=== PATIENT | female | born 1990 | race Caucasian/White ===

== ENCOUNTER 2020-03-10 15:49 | Emergency (ER) | payer OTHER, SELFPAY ==
[2020-03-10 16:00] VITALS: BP 137/97; PULSE 112; RESP 16; O2SAT 98; BMI 20.1
[2020-03-10 16:05] VITALS: TEMP 36.6
--- NOTE | 2020-03-10 16:06 | PC.NURSE ---
Pt to waiting room with clean catch kit and instructions.
[2020-03-10 17:16] LABS: Basophils # 0.1 10^3/uL (0.0-0.1); Basophils % 0.6 %; Eosinophils # 0.1 10^3/uL (0.0-0.8); Eosinophils % 1.4 %; Hematocrit 40.5 % (37.0-47.0); Hemoglobin 13.2 g/dL (11.5-15.3); Lymphocytes # 1.6 10^3/uL (0.8-4.8); Lymphocytes % 19.9 %; Mean Corpuscular HGB Conc 32.6 g/dL (30.0-36.0); Mean Corpuscular Hemoglobin 31.7 pg (28.0-34.0); Mean Corpuscular Volume 97.1 fL (81-99); Mean Platelet Volume 9.5 fL (7.4-10.4); Monocytes # 0.4 10^3/uL (0.2-0.9); Monocytes % 4.7 %; Neutrophils # 5.9 10^3/uL (1.8-7.7); Neutrophils % 73.2 %; Nucleated Red Blood Cells % 0 %; Platelet Count 309 10^3/cmm (130-400); Red Blood Count 4.17 10^6/uL (4.1-5.3)
[2020-03-10 17:28] LABS: Add Urine Microscopic? NO
[2020-03-10 17:32] LABS: Alanine Aminotransferase 25 U/L (0-33); Albumin Level 4.9 g/dL (3.5-5.2); Alkaline Phosphatase 39 IU/L (35-105); Anion Gap 13.2 (5-19); Aspartate Amino Transferase 31 U/L (0-32); Blood Urea Nitrogen 14 mg/dL (6-20); Calcium 9.7 mg/dL (8.5-10.5); Carbon Dioxide 29 mmol/L (22-29); Chloride 103 mmol/L (98-107); Globulin 3.4 g/dL (1.3-4.6); Glomerular Filtration Rate 84.2 mL/min (90-130); Glucose 134 mg/dL (65-115); Osmolality Calculated 290 mOsm/kg (285-295); Potassium 4.2 mmol/L (3.5-5.1); Sodium 141 mmol/L (136-145); Total Bilirubin 0.4 mg/dL (0.15-1.2); Total Protein 8.3 g/dL (6.6-8.7)
[2020-03-10 17:38] LABS: Bilirubin Urine Neg (NEGATIVE); Blood Urine Neg (Negative); Glucose Urine UA Norm (Normal); Ketones Urine Negative (Negative); Leukocyte Esterase Urine Negative (Negative); Nitrate Urine Negative (Negative); Protein Urine Neg (Negative); Urine Appearance Clear (CLEAR); Urine Color Yellow (Yellow); Urobilinogen Urine Norm (Negative); pH Urine 5 (5-7)
[2020-03-10 17:41] LABS: Amphetamines Screen Urine Negative (Negative); Barbiturates Screen Urine Negative (Negative); Benzodiazepines Screen Urine Negative (Negative); Cocaine Screen Urine Negative (Negative); Opiate Screen Urine Negative (Negative); PCP Screen Urine Negative (Negative); THC Screen Urine Negative (Negative)
--- NOTE | 2020-03-10 18:44 | PC.NURSE ---
Pt noted to be ambulating in the lobby and outside without difficulty.
--- NOTE | 2020-03-10 18:50 | ECG_ITS ---
Measurements Intervals [place] Rate: 75 P: 75 AL: 116 QRS: 62 QRSD: 81 T: -8 QT: 343 QTc: 383 SINUS RHYTHM WITH SINUS ARRHYTHMIA WITH SHORT AL INTERVAL POSSIBLE RIGHT ATRIAL ENLARGEMENT [0.25mV P WAVE] LEFT ATRIAL ENLARGEMENT [-0.15mV P WAVE IN V1/V2] POSSIBLE RIGHT VENTRICULAR CONDUCTION DELAY [RSR (QR) IN V1/V2] NONSPECIFIC ST & T-WAVE ABNORMALITY No previous ECG available for comparison Electronically Signed On 03-11-2020 20:12:48 CDT by Leonard Aleman M.D. [email or web address]
--- NOTE | 2020-03-10 19:36 | CTR_ITS ---
PROCEDURE INFORMATION: Exam: CT Head Without Contrast Exam date and time: 03/10/2020 7:52 PM Age: 29 years old Clinical indication: Numbness / parasthesia; Left; Patient HX: C/O intermittent L sided numbness x 1 mo; Additional info: Left sided numbness TECHNIQUE: Imaging protocol: Computed tomography of the head without contrast. Radiation optimization: All CT scans at this facility use at least one of these dose optimization techniques: automated exposure control; mA and/or kV adjustment per patient size (includes targeted exams where dose is matched to clinical indication); or iterative reconstruction. COMPARISON: No relevant prior studies available. RADIATION DOSE METRICS: Total DLP: 916.14 mGy-cm FINDINGS: Brain: Normal. No hemorrhage. Unremarkable white matter. No mass effect. Ventricles: Normal. No ventriculomegaly. Bones/joints: Unremarkable. No acute fracture. Sinuses: Visualized sinuses are unremarkable. No fluid levels. Mastoid air cells: Visualized mastoid air cells are well aerated. Soft tissues: Unremarkable. CT/CT head wo con* 15101 IMPRESSION: No acute intracranial abnormality. Radiation Dose CTDIVOL = (mGy): DLP = 916.14 (mGy-cm)
[2020-03-10 20:09] VITALS: BP 129/81; PULSE 88; RESP 14; O2SAT 100
--- NOTE | 2020-03-10 20:33 | ED_ITS ---
HPI - Neuro Symptoms/Deficit General: Chief Complaint: Neuro Symptoms/Deficit Stated Complaint: stroke s/s Time Seen by Provider: 03/10/20 19:31 History of Present Illness: HPI Narrative: Patient states that for the last month or so she has had what feels like some numbness on the left side of her body from the head on down to the foot and some in the right shoulder not been able get an PCP due to the virus going on. Patient said her foot felt little bit funny today and is why decided come in her 's EMT did a stroke assessment back on her months that everything was fine Onset (ago): month(s) Location: left face, left arm and left leg Severity: mild Associated symptoms: Reports no associated symptoms; Deny chest pain, headache(s), nausea or vomiting Review of Systems Narrative: Complains of mild numbness from the left top of her head down to the left foot has not affected her gait or speech or anything else and started a month ago and they she said that it fell a bit more in her left foot days so decided come to ER and get checked out Const: Denies: fever, chills or body aches Eyes: Denies: change in vision or blurry vision ENMT: Denies: throat pain or nasal congestion Card: Denies: chest pain or shortness of breath on exertion Resp: Denies: shortness of breath, productive cough or non-productive cough GI: Denies: abdominal pain, nausea or vomiting Musc: Denies: extremity pain Skin/Breast: Denies: rash Neuro: Denies: headache Psych: Denies: anxiety or depression Misbah/Lymph: Denies: easy bruising PFS ED PFSH: Social History Smoking and tobacco status: never smoked Female Reproductive History: Date of last menstrual period: 03/09/20 Physical Exam Const: COMMON NORMALS: no apparent distress, average body habitus and oriented x3 HENMT: COMMON NORMALS: normocephalic HEAD & SCALP: normal to inspection and normocephalic FACE & SINUS: normal facial exam Eye: COMMON NORMALS: conjunctivae normal GENERAL EYE: normal appearance of both eyes CONJUNCTIVA: Yes conjunctivae normal Neck/C-Spine: COMMON NORMALS: no JVD Chest: COMMONS NORMALS: inspection of chest normal Resp: COMMON NORMALS: normal respiratory effort and clear to auscultation bilaterally AUSCULTATION: clear to auscultation bilaterally Cardio: COMMON NORMALS: no JVD, regular rate and regular rhythm RATE: regular rate RHYTHM: regular rhythm GI: COMMON NORMALS: normal to inspection, nondistended, normoactive bowel sounds Extremity: COMMON NORMALS: normal to inspection and full ROM Neuro: COMMON NORMALS: oriented x3, CN's II-XII intact bilaterally, moves all extremities, no sensory deficits noted, deep tendon reflexes 2+ bilaterally and gait normal Course Vital Signs: Vital signs: Vital Signs Temperature 97.8 F 03/10/20 16:05 Pulse Rate 88 03/10/20 20:09 Respiratory Rate 14 03/10/20 20:09 Blood Pressure 129/81 03/10/20 20:09 Pulse Oximetry 100 03/10/20 20:09 MDM - Neuro Symptoms/Deficit Lab Data: Labs: Lab Results 03/10/20 03/10/20 03/10/20 Range/Units 17:10 17:10 17:18 WBC 8.0 (4.0-10.0) 10^3/ uL RBC 4.17 (4.1-5.3) 10^6/u L Hgb 13.2 (11.5-15.3) g/dL Hct 40.5 (37.0-47.0) % MCV 97.1 (81-99) fL MCH 31.7 (28.0-34.0) pg MCHC 32.6 (30.0-36.0) g/dL RDW 12.0 L (12.1-15.1) % Plt Count 309 (130-400) 10^3/c mm MPV 9.5 (7.4-10.4) fL Neut % (Auto) 73.2 % Lymph % (Auto) 19.9 % [place] % (Auto) 4.7 % Eos % (Auto) 1.4 % Baso % (Auto) 0.6 % Neut # (Auto) 5.9 (1.8-7.7) 10^3/u L Lymph # (Auto) 1.6 (0.8-4.8) 10^3/u L [place] # (Auto) 0.4 (0.2-0.9) 10^3/u L Eos # (Auto) 0.1 (0.0-0.8) 10^3/u L Baso # (Auto) 0.1 (0.0-0.1) 10^3/u L Nucleated RBC % (a uto) 0 % Nucleated RBCs # 0.0 /100WBC Sodium 141 (136-145) mmol/L Potassium 4.2 (3.5-5.1) mmol/L Chloride 103 (98-107) mmol/L Carbon Dioxide 29 (22-29) mmol/L Anion Gap 13.2 (5-19) BUN 14 (6-20) mg/dL Creatinine 0.8 (0.5-0.9) mg/dL GFR Calculation 84.2 L (90-130) mL/min Glucose 134 H (65-115) mg/dL Calculated Osmolal ity 290 (285-295) mOsm/k g Calcium 9.7 (8.5-10.5) mg/dL Total Bilirubin 0.4 (0.15-1.2) mg/dL AST 31 (0-32) U/L ALT 25 (0-33) U/L Alkaline Phosphata se 39 (35-105) IU/L Total Protein 8.3 (6.6-8.7) g/dL Albumin 4.9 (3.5-5.2) g/dL Globulin 3.4 (1.3-4.6) g/dL Urine Color Yellow (Yellow) Urine Appearance Clear (CLEAR) Urine pH 5 (5-7) Ur Specific Gravit y 1.010 (1.005-1.030) Urine Protein Neg (Negative) Urine Glucose (UA) Norm (Normal) Urine Ketones Negative (Negative) Urine Blood Neg (Negative) Urine Nitrate Negative (Negative) Urine Bilirubin Neg (NEGATIVE) Urine Urobilinogen Norm (Negative) mg/dL Ur Leukocyte Flower ase Negative (Negative) Urine Opiates Scre en (Negative) ng/mL Ur Barbiturates Sc reen (Negative) ng/mL Ur Phencyclidine S crn (Negative) ng/mL Ur Amphetamines Sc reen (Negative) ng/mL U Benzodiazepines Scrn (Negative) ng/mL Urine Cocaine Scre en (Negative) ng/mL U Marijuana (THC) Screen (Negative) ng/mL 03/10/20 Range/Units 17:18 WBC (4.0-10.0) 10^3/ uL RBC (4.1-5.3) 10^6/u L Hgb (11.5-15.3) g/dL Hct (37.0-47.0) % MCV (81-99) fL MCH (28.0-34.0) pg MCHC (30.0-36.0) g/dL RDW (12.1-15.1) % Plt Count (130-400) 10^3/c mm MPV (7.4-10.4) fL Neut % (Auto) % Lymph % (Auto) % [place] % (Auto) % Eos % (Auto) % Baso % (Auto) % Neut # (Auto) (1.8-7.7) 10^3/u L Lymph # (Auto) (0.8-4.8) 10^3/u L [place] # (Auto) (0.2-0.9) 10^3/u L Eos # (Auto) (0.0-0.8) 10^3/u L Baso # (Auto) (0.0-0.1) 10^3/u L Nucleated RBC % (a uto) % Nucleated RBCs # /100WBC Sodium (136-145) mmol/L Potassium (3.5-5.1) mmol/L Chloride (98-107) mmol/L Carbon Dioxide (22-29) mmol/L Anion Gap (5-19) BUN (6-20) mg/dL Creatinine (0.5-0.9) mg/dL GFR Calculation (90-130) mL/min Glucose (65-115) mg/dL Calculated Osmolal ity (285-295) mOsm/k g Calcium (8.5-10.5) mg/dL Total Bilirubin (0.15-1.2) mg/dL AST (0-32) U/L ALT (0-33) U/L Alkaline Phosphata se (35-105) IU/L Total Protein (6.6-8.7) g/dL Albumin (3.5-5.2) g/dL Globulin (1.3-4.6) g/dL Urine Color (Yellow) Urine Appearance (CLEAR) Urine pH (5-7) Ur Specific Gravit y (1.005-1.030) Urine Protein (Negative) Urine Glucose (UA) (Normal) Urine Ketones (Negative) Urine Blood (Negative) Urine Nitrate (Negative) Urine Bilirubin (NEGATIVE) Urine Urobilinogen (Negative) mg/dL Ur Leukocyte Flower ase (Negative) Urine Opiates Scre en Negative (Negative) ng/mL Ur Barbiturates Sc reen Negative (Negative) ng/mL Ur Phencyclidine S crn Negative (Negative) ng/mL Ur Amphetamines Sc reen Negative (Negative) ng/mL U Benzodiazepines Scrn Negative (Negative) ng/mL Urine Cocaine Scre en Negative (Negative) ng/mL U Marijuana (THC) Screen Negative (Negative) ng/mL Discharge Plan Discharge Patient Disposition: Home, Self-Care Clinical Impression: Numbness Condition: Stable Discharge Orders: Discharge Order (Routine); Ordered 03/10/20 Ordered By: Eren Tomas Discharge Diet: Usual diet Discharge Activity: Resume usual activity Activity Restrictions/Additional Instructions: Follow-up primary care doctor this week to discuss symptoms Coding Level of Care Code ED Iron Plastic Bullet Maker for Pia Michelle
--- NOTE | 2020-03-10 21:02 | ECG_ITS ---
Measurements Intervals [place] Rate: 84 P: 78 [place]: 127 QRS: 66 QRSD: 82 T: 40 QT: 327 QTc: 387 SINUS RHYTHM POSSIBLE RIGHT ATRIAL ENLARGEMENT [0.25mV P WAVE] LEFT ATRIAL ENLARGEMENT [-0.15mV P WAVE IN V1/V2] POSSIBLE RIGHT VENTRICULAR CONDUCTION DELAY [RSR (QR) IN V1/V2] MODERATE ST DEPRESSION [0.05+ mV ST DEPRESSION] No previous ECG available for comparison Electronically Signed On 03-11-2020 19:57:10 CDT by Leonard Aleman M.D. [email or web address]
== END 2020-03-10 20:54 | disposition home or self-care (01) ==
PROVIDERS: Family Medicine; Emergency Provider Nurse Practitioner Family
DX: R20.0 Anesthesia of skin (principal)
CPT/HCPCS: 12345; 36415; 70450; 80053; 80306; 81003; 85025; 93005; 99283

== ENCOUNTER 2021-07-09 21:34 | Inpatient (IN) | payer OTHER, SELFPAY ==
[2021-07-09] VITALS (13 sets, daily range): BP systolic 115–138; BP diastolic 63–78; PULSE 75–93; TEMP 37.2; BMI 24.5
[2021-07-09] MEDS: lactated ringers 1,000 ML 999 ML IV (16:37)
--- NOTE | 2021-07-09 17:28 | P.HP_ITS ---
Providers/Chief Complaint Chief Complaint: Abdominal pain History of Present Illness Carmen Harris is a 31 year old female at 39 3/7 weeks who presents for labor. She had intended to have a home delivery with a market development executive. She achieved 4 cm dilation for 8 hours and the market development executive was worried and sent her here to deliver. When she arrived, she was 8 cm and in active labor. Her is uncomplicated. She had good care with the market development executive. GBS- negative blood type A+ Hep B negative rubella- immune GCT- passed Review of Systems General: Reports: 10 or more systems reviewed and unremarkable except in HPI and below Medications/Allergies Allergies Allergy/AdvReac Type Severity Reaction Status Date / Time coconut Allergy ADR-Vomitin Verified 03/10/20 16:04 g glycerin Allergy ADR-Vomitin Verified 03/10/20 16:04 g loratadine [From Claritin] Allergy ADR/ALGY-Pa Verified 03/10/20 16:04 lpitations PFSH Acute PFSH: Social History Smoking and tobacco status: never smoked Female Reproductive History: Date of last menstrual period: 03/09/20 Vitals/I&O/Wt Last Vital Signs Pulse 81 07/09/21 17:19 BP 130/63 07/09/21 17:19 Physical Exam : MANUAL OB EXAM: dilated 8 cm, effaced fully and station 0 AMNIOTIC FLUID: no fluid A&P Assessment and plan (1) Active labor at term: anticipate normal spontaneous delivery Status: Acute Attestations Medical Necessity Statement*: The patient is in active labor. She may be here for 2 midnights. Coding Level of Care Code Acute Geodetic Surveyor for Pia Michelle Diagnoses Active labor at term
[2021-07-09 17:57] LABS: Basophils # 0.1 10^3/uL (0.0-0.1); Basophils % 0.3 %; Eosinophils # 13.3 10^3/uL (0.0-0.8); Hemoglobin 13.6 g/dL (11.5-15.3); Lymphocytes # 0.7 10^3/uL (0.8-4.8); Lymphocytes % 3.5 %; Mean Corpuscular Hemoglobin 32.9 pg (28.0-34.0); Mean Corpuscular Volume 96.9 fl (81-99); Mean Platelet Volume 11.1 fL (7.4-10.4); Monocytes # 0.6 10^3/uL (0.2-0.9); Neutrophils # 4.25 10^3/uL (1.8-7.7); Neutrophils % 21.2 %; Nucleated Red Blood Cells % 0 %; Platelet Count 260 10^3/cmm (130-400); Red Blood Count 4.13 10^6/uL (4.1-5.3); Red Cell Distribution Width 13.9 % (12.1-15.1); White Blood Count 20.1 10^3/uL (4.0-10.0)
[2021-07-09 18:58] LABS: Slide Review Slide Review Perform
[2021-07-09] MEDS: dextrose 5%-lactated ringers 1,000 ML 125 ML IV (21:45)
[2021-07-10] VITALS (31 sets, daily range): BP systolic 90–130; BP diastolic 50–74; PULSE 61–88; RESP 17–20; TEMP 36.3–36.9
[2021-07-10] MEDS: oxytocin 30 UNIT/500 ML BAG 600 UNIT IV (00:10)
[2021-07-10] MEDS: lidocaine 2% INJ 20 mL INJECTION (00:17)
[2021-07-10] MEDS: fentaNYL 50 mcg/mL INJ 2mL 25 MCG IVP (00:28)
--- NOTE | 2021-07-10 00:30 | PM.DELIVERY ---
Delivery Note: Date of delivery: July 10, 2021 Pre-delivery diagnoses: active labor at 39 3/7 weeks Post-delivery diagnoses: same Procedure: Op report anesthesia: None Delivering Physician: celso Estimated blood loss (mL): 75 Findings: Term female in the cephalic presentation Pre-Delivery Course: The patient intended to deliver at home with a information technology manager. The information technology manager became concerned that the patient did not make any cervical change in 8 hours. She was dilated to 4 cm. She was brought here. She progress to 8 cm and stalled. She was palpated to be OP. She was repositioned several times. She eventually had complete cervical dilation and the baby was OA. She had AROM at complete cervical dilation. She began to push. Delivery: The patient had complete cervical dilation and began to push. The head delivered in the MUMTAZ position over an intact perineum under no anesthesia. The nose and mouth were bulb suctioned. The shoulders and body delivered atraumatically. The baby was placed onto the mother's abdomen. The cord was clamped and cut. Cord blood was obtained. The placenta delivered spontaneously. It was inspected and found to be intact. Inspection of the perineum revealed bilateral vaginal lacerations. These were repaired in a running locked stitch.. Estimated blood loss 75 mL. Apgars on baby were 9 at 1 minute and 9 at 5 minutes. Weight of baby is 8 pounds 8 ounces. Mother and baby were stable post delivery. A&P Assessment and plan (1) Active labor at term: Status: Acute Coding Level of Care Code Acute Mica Miner Blasting for Chg Fwd Diagnoses Active labor at term
[2021-07-10] MEDS: HYDROcodone-acetaminophen 5-325 mg Tablet PO (02:51)
[2021-07-10] MEDS: ibuprofen 800 mg tablet PO ×3 (08:20→21:22)
[2021-07-10] MEDS: docusate sodium 100 mg Capsule PO ×2 (08:20→17:06)
[2021-07-10 13:08] LABS: Hematocrit 36.6 % (37.0-47.0); Mean Corpuscular HGB Conc 32.8 g/dL (30.0-36.0); Mean Corpuscular Hemoglobin 33.2 pg (28.0-34.0); Mean Corpuscular Volume 101.4 fl (81-99); Mean Platelet Volume 10.7 fL (7.4-10.4); Platelet Count 185 10^3/cmm (130-400); Red Blood Count 3.61 10^6/uL (4.1-5.3); Red Cell Distribution Width 14.3 % (12.1-15.1); White Blood Count 18.7 10^3/uL (4.0-10.0)
[2021-07-11] VITALS (9 sets, daily range): BP systolic 100–117; BP diastolic 57–63; PULSE 68–146; RESP 16; TEMP 36.3–36.6; O2SAT 99
[2021-07-11] MEDS: docusate sodium 100 mg Capsule PO (09:19)
[2021-07-11] MEDS: ibuprofen 800 mg tablet PO (09:20)
--- NOTE | 2021-07-11 10:07 | PM.DCS ---
Discharge Providers Date of Admission: 07/09/21 21:34 Date of Discharge: July 11, 2021 Attending Provider at Admission: Farhana Live MD Attending Provider at Discharge: Gavin Joyner MD Diagnoses at Discharge Discharge Diagnosis (1) Active labor at term: Status: Resolved Reason for Visit Reason for Visit: Abdominal pain Hospital Course Hospital Course The patient was admitted in active labor. She had intended to deliver at home with a tinner automatic. The tinner automatic felt that the labor had stalled and she brought her here. She eventually had a spontaneous delivery of a term . She did well and was ready for discharge on day #1 Physical Exam Narrative: EXAM NARRATIVE: The patient is doing well this morning. No concerns. She has minimal lochia. Pain is well controlled. Tolerating a regular diet and ambulating without difficulty. Const: COMMON NORMALS: no acute distress, average body habitus, patient oriented x3, no limitations, healthy appearing, alert and well nourished GENERAL APPEARANCE: cooperative, comfortable, well kempt and well developed ORIENTATION/CONSCIOUSNESS: Yes awake, Yes oriented to person, Yes oriented to place and Yes oriented to time Resp: COMMON NORMALS: normal respiratory effort EFFORT & INSPECTION: Yes able to speak in complete sentences GI: COMMON NORMALS: Soft to palpation and non-tender PALPATION: Yes Soft to palpation Extremity: COMMON NORMALS: no clubbing, cyanosis or edema and no calf tenderness Neuro: COMMON NORMALS: patient oriented x3 SENSORIUM/ORIENTATION: Yes alert, Yes oriented to person, Yes oriented to place and Yes oriented to time Psych: APPEARANCE: Yes well kempt Discharge Data Data Completed and Pending: Labs from last 24 hours 07/10/21 12:18 WBC 18.7 H RBC 3.61 L Hgb 12.0 Hct 36.6 L MCV 101.4 H MCH 33.2 MCHC 32.8 RDW 14.3 Plt Count 185 MPV 10.7 H Vitals: Last Vital Signs Temp 97.5 F L 07/11/21 09:27 Pulse 113 H 07/11/21 09:28 Resp 16 07/11/21 04:32 BP 101/57 07/11/21 09:27 Pulse Ox 99 07/11/21 09:28 Discharge Plan Discharge Patient Disposition: Home Condition: Stable Prescriptions: Continued [id number]-Sz-FA 1 mg Tablet 1 tab PO DAILY RF: 0 Hemaplex 1 tab PO DAILY RF: 0 Discharge Orders: Discharge Order (Routine); Ordered 07/11/21 Ordered By: Farhana Live Patient Instructions: Vitamins (By mouth), Depression (GEN), Pre-eclampsia and Eclampsia (DC), Bleeding (DC), OB Discharge Report, OB Food/Drug Interaction Guide, Opioid Safety, OB Home Care, OB Proud Parent Packet, OB Vaginal Deliveries - C Discharge Attestations Time Spent in Discharge Care*: less than 30 min Quality Metrics Clinical Quality Measures During this hospital stay, did patient experience: None Coding Level of Care Code Acute Chg FW DC note Diagnoses Active labor at term
== END 2021-07-11 13:36 | disposition home or self-care (01) | DRG 807 ==
LOC: OPOB 21:35 → OBGYN 07-10 02:07
PROVIDERS: Admitting Provider Obstetrics & Gynecology; Visit Provider Obstetrics & Gynecology
DX: O70.0 First degree perineal laceration during delivery (principal); Z37.0 Single live birth; Z3A.39 39 weeks gestation of pregnancy
CPT/HCPCS: 36415; 59025; 59409; 85025; 85027; 96374; 98960; 99211; J3010

== ENCOUNTER 2024-05-24 14:07 | Emergency (ER) | payer OTHER, SELFPAY ==
[2024-05-24 14:08] VITALS: BP 118/77; PULSE 89; TEMP 36.9; O2SAT 100; BMI 22.6
--- NOTE | 2024-05-24 14:13 | ED_ITS ---
HPI - Allergic Reaction General: Chief complaint: Allergic Reaction Stated complaint: ALLERGIC REACTION Time Seen by Provider: 05/24/24 14:09 History of Present Illness: HPI narrative: 34-year-old woman with a history of anap hylaxis to bee stings who presents emergency room by ambulance after being stung by bee today. Her had IM Benadryl and gave her 50 mg. EMS gave her 25 more milligrams of Benadryl, 125 mg Solu-Medrol and some IV Zofran and upon arrival here she is improved. She also received a small amount of fluids. She said if she felt like her tongue was going numb and may be swelling. She felt a little bit short of breath. She now feels normal Review of Systems Narrative: Constitutional symptoms: Negative except as documented in HPI. Skin symptoms: Negative except as documented in HPI. Eye symptoms: Negative except as documented in HPI. ENMT symptoms: Negative except as documented in HPI. Respiratory symptoms: Negative except as documented in HPI. Cardiovascular symptoms: Negative except as documented in HPI. Gastrointestinal symptoms: Negative except as documented in HPI. Genitourinary symptoms: Negative except as documented in HPI. Musculoskeletal symptoms: Negative except as documented in HPI. Neurologic symptoms: Negative except as documented in HPI. Psychiatric symptoms: Negative except as documented in HPI. Endocrine symptoms: Negative except as documented in HPI. PFSH ED PFSH: Social History Smoking and tobacco/nicotine status: never used tobacco/nicotine Physical Exam Narrative: EXAM NARRATIVE: General: Alert, no acute distress. Skin: Warm, dry. Head: Normocephalic, atraumatic. Neck: Supple, trachea midline. Eye: Extraocular movements are intact. Ears, nose, mouth and throat: mucosa moist. Cardiovascular: Regular, Normal peripheral perfusion. Respiratory: Lungs are clear to auscultation, respirations are non-labored, breath sounds are equal, Symmetrical chest wall expansion. Gastrointestinal: Soft, Nontender, Non distended Musculoskeletal: Normal ROM, no deformity. Neurological: Alert and oriented, No focal neurological deficit observed. Psychiatric: Cooperative, appropriate mood & affect. Course Vital Signs: Vital signs: Vital Signs Temperature 98.5 F 05/24/24 14:08 Pulse Rate 89 05/24/24 14:08 Blood Pressure 118/77 05/24/24 14:08 Pulse Oximetry 100 05/24/24 14:08 Oxygen Delivery Me thod Room Air 05/24/24 14:08 MDM - Allergic Reaction Medical Decision Making Assessment and plan: Anaphylaxis Bee sting - Discharged home - Discussed plan with patient. Answered any questions. - Evaluation and treatment of this problem were appropriate in the emergency setting. No radiology studies performed this visit Discharge Plan Discharge Patient Disposition: Home Clinical Impression: Anaphylaxis, Accidental bee sting Condition: Stable Prescriptions: New prednisone 20 mg tablet 40 mg PO DAILY 5 Days Qty: 10 0RF No Action [id number] 1 mg Tablet 1 tab PO DAILY Hemaplex 1 tab PO DAILY Discharge Orders: Discharge ED (Routine); Ordered 05/24/24 Ordered By: Carole Vasquez Discharge Diet: Usual diet Discharge Activity: Increase activity as tolerated Patient Instructions: Anaphylaxis (ED) Activity Restrictions/Additional Instructions: Thank you for choosing [facility] for your healthcare needs today. Please realize this is an emergency room and that we are providing you with a medical screening exam and this may not be complete and all inclusive of all the testing and or work up that you may need to determine your ailment or severity of your illness. You have been screened and evaluated and felt safe for discharge. Health conditions do change or evolve sometimes and as such it is important that you follow up with your Primary Doctor to be re checked, 3-5 days is a general good time frame for follow up. You are always welcome to return to the ED for re asse ssment if your symptoms are worsening or you have new concerns Coding Level of Care Code ED Cloth Inspector for Pia Michelle
[2024-05-24 14:44] VITALS: PULSE 82; O2SAT 99
== END 2024-05-24 14:47 | disposition home or self-care (01) ==
PROVIDERS: Emergency Provider Emergency Medicine
DX: T63.441A Toxic effect of venom of bees, accidental (unintentional), initial encounter (principal); T78.2XXA Anaphylactic shock, unspecified, initial encounter; X58.XXXA Exposure to other specified factors, initial encounter
CPT/HCPCS: 99283